=== PATIENT | male | born 1955 | race Caucasian/White ===

== ENCOUNTER 2017-06-21 17:02 | Inpatient (IN) | payer MEDICARE, BC ==
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
[2017-06-21] MEDS ORDERED: IBUPROFEN 600 MG TAB PO STA (17:23)
[2017-06-21] MEDS ORDERED: ACETAMINOPHEN TAB 500 MG TAB PO STA (17:23)
[2017-06-21] MEDS: SODIUM CHLORIDE 0.9% 500 ML IV SCH (17:37)
[2017-06-21 18:04] LABS: Basophils % (A) 1 %; Eosinophils % (A) 0 %; HGB 13.4 gm/dL (13.0-17.5); Lymphocytes # (A) 0.3 k/uL (1.0-4.8); Lymphocytes % (A) 4 %; MCHC 31.8 g/dL (31.0-37.0); MCV 91.1 fL (80.0-100.0); Mean Platelet Volume 6.7; Monocytes # (A) 0.6 k/uL (0-1.0); Monocytes % (A) 7 %; Neutrophils # (A) 7.9 k/uL (1.3-7.7); Neutrophils % (A) 88 %; Platelet Count 232 k/uL (150-450); RBC 4.61 m/uL (4.30-5.90); RDW 12.4 % (11.5-15.5)
[2017-06-21 18:16] LABS: ALT 32 U/L (21-72); AST 75 U/L (17-59); Albumin 3.8 g/dL (3.5-5.0); Alkaline Phosphatase 53 U/L (38-126); Anion Gap 13 mmol/L; Blood Urea Nitrogen 19 mg/dL (9-20); Calcium 9.4 mg/dL (8.4-10.2); Carbon Dioxide 27 mmol/L (22-30); Chloride 103 mmol/L (98-107); Glucose 107 mg/dL (74-99); Potassium 3.9 mmol/L (3.5-5.1); Sodium 143 mmol/L (137-145); Total Bilirubin 1.1 mg/dL (0.2-1.3); Total Protein 6.7 g/dL (6.3-8.2)
[2017-06-21] MEDS ORDERED: OSELTAMIVIR 75 MG CAP PO STA (18:18)
[2017-06-21] MEDS ORDERED: IPRATROPIUM-ALBUTEROL 3 ML NEB INHALATION STA (18:18)
[2017-06-21 18:20] LABS: INR 1.1 (<1.2); Partial Thromboplastin Time 22.8 sec (22.0-30.0); Prothrombin Time 10.5 sec (9.0-12.0)
--- NOTE | 2017-06-21 18:34 | XR ---
EXAMINATION TYPE: XR chest 2V DATE OF EXAM: 06/21/2017 COMPARISON: NONE HISTORY: Fever TECHNIQUE: Frontal and lateral views of the chest are obtained. FINDINGS: There is no heart failure nor confluent pneumonic infiltrate. Costophrenic angles are leilani r. There are chest leads. Heart size is fairly normal. Bony thorax appears intact. IMPRESSION: No active cardiopulmonary disease.
[2017-06-21 18:43] LABS: Creatine Kinase MB 2.4 ng/mL (0.0-2.4); Troponin I 0.026 ng/mL (0.000-0.034)
[2017-06-21 19:34] LABS: Amorphous Sediment,Urine Rare /hpf; Appearance,Urine Turbid (Clear); Bilirubin,Urine Negative (Negative); Blood,Urine Moderate (Negative); Calcium Oxalate Crystals,Urine Moderate /hpf; Color,Urine Dark Brown; Glucose,Urine (UA) Negative (Negative); Hyaline Casts,Urine 50 /lpf (0-2); Ketones,Urine 1+ (Negative); Leukocyte Esterase,Urine Small (Negative); Mucus,Urine Many /hpf; Nitrite,Urine Negative (Negative); PH, Urine 5.5 (5.0-8.0); Protein,Urine 2+ (Negative); RBC,Urine 6 /hpf (0-5); Specific Gravity,Urine 1.026 (1.001-1.035); Urobilinogen,Urine <2.0 mg/dL (<2.0); WBC,Urine 14 /hpf (0-5)
[2017-06-21] MEDS ORDERED: SODIUM CHLORIDE 0.9% 1,000 ML IV ONE ×2 (19:43→22:38)
[2017-06-21] MEDS ORDERED: ACETAMINOPHEN TAB 325 MG TAB PO PRN (19:45)
[2017-06-21] MEDS: IPRATROPIUM-ALBUTEROL 3 ML NEB INHALATION SCH (20:59)
[2017-06-21] MEDS: cefTRIAXone IN SWFI 2,000 MG/20 ML SYRINGE IVP SCH (23:22)
[2017-06-22] MEDS: IPRATROPIUM-ALBUTEROL 3 ML NEB INHALATION SCH ×6 (00:38→21:14)
[2017-06-22 05:01] VITALS: BMI 30.2
[2017-06-22] MEDS: OSELTAMIVIR 75 MG CAP PO SCH ×2 (09:09→22:46)
[2017-06-22] MEDS: ASPIRIN 81 MG PO SCH (09:09)
[2017-06-22] MEDS: LISINOPRIL-HCTZ 20-12.5 MG 1 EACH TAB PO SCH (09:09)
[2017-06-22 11:42] LABS: Glucose,Whole Blood 115 mg/dL (75-99)
[2017-06-22] MEDS: IPRATROPIUM BROMIDE 0.06% NASAL SPRAY (15 ML) EA NOSTRIL SCH (12:15)
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
--- NOTE | 2017-06-22 16:01 | PN ---
PROGRESS NOTE CHIEF COMPLAINT: Difficulty breathing and influenza A. HISTORY OF PRESENT ILLNESS: This gentleman is doing better. Breathing is much improved. PHYSICAL EXAM: Color is good and chest is clear. Cardiac is normal. The abdomen is soft, nontender. IMPRESSION: 1. Influenza A. 2. Hypoxemia. 3. Rhabdomyolysis. 4. Renal failure. 5. Dehydration. 6. Hypotension. PLAN: 1. Increase IV fluids. 2. Continue to monitor vital signs and respiratory function along with pulse ox. MMODL / IJN: [id number] /
[2017-06-22] MEDS: SODIUM CHLORIDE 0.9% 1,000 ML IV SCH ×2 (17:45→21:51)
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
[2017-06-22] MEDS: cefTRIAXone IN SWFI 2,000 MG/20 ML SYRINGE IVP SCH (23:58)
[2017-06-23] MEDS: SODIUM CHLORIDE 0.9% 1,000 ML IV SCH ×3 (05:44→16:48)
[2017-06-23] MEDS: IPRATROPIUM-ALBUTEROL 3 ML NEB INHALATION SCH ×4 (07:49→21:31)
[2017-06-23] MEDS: ASPIRIN 81 MG PO SCH (08:57)
[2017-06-23] MEDS: LISINOPRIL-HCTZ 20-12.5 MG 1 EACH TAB PO SCH (08:57)
[2017-06-23] MEDS: metFORMIN 500 MG TAB PO SCH (08:57)
[2017-06-23] MEDS: OSELTAMIVIR 75 MG CAP PO SCH (08:57)
[2017-06-23 09:02] LABS: ALT 80 U/L (21-72); AST 310 U/L (17-59); Albumin 2.7 g/dL (3.5-5.0); Alkaline Phosphatase 37 U/L (38-126); Anion Gap 9 mmol/L; Blood Urea Nitrogen 12 mg/dL (9-20); C Reactive Protein 65.8 mg/L (<10.0); Carbon Dioxide 27 mmol/L (22-30); Chloride 104 mmol/L (98-107); Glucose 89 mg/dL (74-99); Potassium 3.6 mmol/L (3.5-5.1); Sodium 140 mmol/L (137-145); Total Bilirubin 0.3 mg/dL (0.2-1.3); Total Protein 5.2 g/dL (6.3-8.2)
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
--- NOTE | 2017-06-23 14:32 | PN ---
PROGRESS NOTE CHIEF COMPLAINT: Difficulty breathing and influenza. HISTORY OF PRESENT ILLNESS: This gentleman is still very wheezy. He states that this is "normal" for him. PHYSICAL EXAM: Breath sounds are extremely poor and he has extensive wheezing and rales. He has a prolonged expiratory phase. Cardiac exam is normal. IMPRESSION: 1. Influenza A. 2. Chronic obstructive pulmonary disease. 3. Renal failure. PLAN: No change in program and continue to treat until his pulmonary function is improved. MMCEEL / BROOKSN: [id number] /
[2017-06-24 00:20] LABS: Hepatitis A Antibody IgM Non-Reactive (Non-Reactive); Hepatitis B Core IgM Non-Reactive (Non-Reactive); Hepatitis C IgG Antibody Non-Reactive (Non-Reactive)
[2017-06-24] MEDS: OSELTAMIVIR 75 MG CAP PO SCH ×3 (00:42→21:13)
[2017-06-24] MEDS: cefTRIAXone IN SWFI 2,000 MG/20 ML SYRINGE IVP SCH ×2 (00:42→22:54)
[2017-06-24] MEDS: SODIUM CHLORIDE 0.9% 1,000 ML IV SCH ×9 (00:42→21:13)
[2017-06-24] MEDS: IPRATROPIUM-ALBUTEROL 3 ML NEB INHALATION SCH ×4 (07:19→20:05)
[2017-06-24] MEDS: IPRATROPIUM BROMIDE 0.06% NASAL SPRAY (15 ML) EA NOSTRIL SCH ×2 (07:58→10:26)
[2017-06-24] MEDS: metFORMIN 500 MG TAB PO SCH (10:27)
[2017-06-24] MEDS: LISINOPRIL-HCTZ 20-12.5 MG 1 EACH TAB PO SCH (10:27)
[2017-06-24] MEDS: ASPIRIN 81 MG PO SCH (10:27)
--- NOTE | 2017-06-24 10:52 | US ---
EXAMINATION TYPE: US abdomen complete DATE OF EXAM: 06/24/2017 COMPARISON: NONE CLINICAL HISTORY: elev. LFTs. EXAM MEASUREMENTS: Liver Length: 18 cm Gallbladder Wall: 0.2 cm CBD: 0.47 cm Spleen: 10.6 cm Right Kidney: 9.5 cm Left Kidney: 10.4 cm Severely limited due to obscuring bowel gas, pt unable to hold breath well and liver density. Pancreas: Obscured by bowel gas Liver: Increased attenuation, decreased visualization of vessels suggestive of fatty infiltrate, yola sures upper limits of normal Gallbladder: wnl Evidence for sonographic Obrien's sign: No CBD: wnl Spleen: wnl Right Kidney: Parts obscured by overlying bowel gas; visible parts appear wnl Left Kidney: Parts obscured by overlying bowel gas; visible parts appear wnl Upper IVC: Obscured by overlying bowel gas; visible parts appear wnl Abd Aorta: Obscured by overlying bowel gas; visible parts appear wnl The liver is homogenous. The visible intrahepatic portion of the IVC and proximal abdominal aorta ar e within normal limits. There is no evidence of cholelithiasis. Common bile duct is unremarkable. The spleen is unremarkable. Kidneys are symmetric and free of hydronephrosis as visualized. IMPRESSION: MILD HEPATOMEGALY AND FATTY INFILTRATION OF THE LIVER.
[2017-06-24] MEDS: POLYETHYLENE GLYCOL 3350 17 GM POWD.PACK PO SCH (14:51)
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
[2017-06-25] MEDS: SODIUM CHLORIDE 0.9% 1,000 ML IV SCH ×3 (02:43→08:07)
[2017-06-25 03:17] VITALS: RESP 20
[2017-06-25 07:12] VITALS: BP 136/82; TEMP 98.3
[2017-06-25] MEDS: OSELTAMIVIR 75 MG CAP PO SCH (08:07)
[2017-06-25] MEDS: metFORMIN 500 MG TAB PO SCH (08:07)
[2017-06-25] MEDS: LISINOPRIL-HCTZ 20-12.5 MG 1 EACH TAB PO SCH (08:07)
[2017-06-25] MEDS: ASPIRIN 81 MG PO SCH (08:07)
[2017-06-25] MEDS: POLYETHYLENE GLYCOL 3350 17 GM POWD.PACK PO SCH (08:08)
[2017-06-25] MEDS: IPRATROPIUM BROMIDE 0.06% NASAL SPRAY (15 ML) EA NOSTRIL SCH (08:08)
[2017-06-25 08:36] LABS: Anion Gap 10 mmol/L; Blood Urea Nitrogen 4 mg/dL (9-20); Calcium 8.1 mg/dL (8.4-10.2); Carbon Dioxide 27 mmol/L (22-30); Chloride 103 mmol/L (98-107); Glucose 91 mg/dL (74-99); Potassium 3.7 mmol/L (3.5-5.1); Sodium 140 mmol/L (137-145)
[2017-06-25 09:37] LABS: Creatine Kinase 5199 U/L (55-170)
[2017-06-25] MEDS: IPRATROPIUM-ALBUTEROL 3 ML NEB INHALATION SCH ×2 (10:15→10:48)
[2017-06-25 10:59] VITALS: PULSE 88
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
--- NOTE | 2017-06-25 14:41 | PN ---
PROGRESS NOTE CHIEF COMPLAINT: Bronchopneumonia, hypoxia and renal failure. HISTORY OF PRESENT ILLNESS: This gentleman is doing a little bit better. He remains quite congested, but he states this is normal for him. He has otherwise been doing well. Vital signs are normal. PHYSICAL EXAM: He has inspiratory and expiratory wheezing with scattered rales and rhonchi. Cardiac exam is normal. The abdomen is protuberant. IMPRESSION: 1. Bronchial pneumonia. 2. Influenza A. 3. Hypoxia. 4. Pickwickian syndrome. 5. Renal failure. PLAN: No change in program and he can probably go home soon. MMODL / IJN: [id number] /
--- NOTE | 2017-06-25 22:17 | DS ---
DISCHARGE SUMMARY CHIEF COMPLAINT: Cough and congestion with hypoxia. HISTORY OF PRESENT ILLNESS AND PHYSICAL EXAM: Details of this man's history and physical can be found in the initial workup. LABORATORY STUDIES: While he was in a hospital he had laboratory studies, details of which can be found in the laboratory section of his chart. COURSE IN HOSPITAL: After admission, he was placed on bedrest, started on intravenous fluids, updrafts and steroids with antibiotics and he was also treated for influenza. He remained very congested for several days and then began to improve. He indicated he reached a steady state whereby his respiratory function was back to baseline. It was felt that he could be discharged and he will be sent home on seen in several days and he will be returned on his usual medication. FINAL DIAGNOSES: 1. Influenza A. 2. Bronchitis. 3. Exacerbation of chronic obstructive pulmonary disease. 4. Closed head injury. OPERATION: None. CONSULTATION: None. He is improved. ISSAC / VIBHA: [id number] /
== END 2017-06-25 14:19 | disposition home health service (06) | DRG 193 ==
LOC: EC 17:02 → 6SEL 19:44 → 4MS4W 06-22 13:16
PROVIDERS: ADMIT Family Medicine; ATTEND Family Medicine
DX: J10.1 Influenza due to other identified influenza virus with other respiratory manifestations (principal); J96.01 Acute respiratory failure with hypoxia; E66.2 Morbid (severe) obesity with alveolar hypoventilation; J44.1 Chronic obstructive pulmonary disease with (acute) exacerbation; J44.0 Chronic obstructive pulmonary disease with (acute) lower respiratory infection; M62.82 Rhabdomyolysis; N17.9 Acute kidney failure, unspecified; E87.2 Acidosis; N39.0 Urinary tract infection, site not specified; E11.9 Type 2 diabetes mellitus without complications; E86.0 Dehydration; S09.90XA Unspecified injury of head, initial encounter; I10 Essential (primary) hypertension; K58.9 Irritable bowel syndrome, unspecified; J18.0 Bronchopneumonia, unspecified organism; Z88.0 Allergy status to penicillin; Z79.82 Long term (current) use of aspirin; Z87.891 Personal history of nicotine dependence; Z79.84 Long term (current) use of oral hypoglycemic drugs; Z79.899 Other long term (current) drug therapy; Y92.002 Bathroom of unspecified non-institutional (private) residence as the place of occurrence of the external cause; W18.09XA Striking against other object with subsequent fall, initial encounter; Z68.30 Body mass index [BMI] 30.0-30.9, adult
CPT/HCPCS: 36415; 71046; 76700; 80048; 80053; 81001; 82550; 82553; 83605; 84484; 85025; 85610; 85652; 85730; 86140; 86705; 86709; 86803; 87040; 87086; 87502; 93005; 94640; 99285